=== PATIENT | female | born 1980 | race Caucasian/White ===

== ENCOUNTER → 2019-12-05 | Outpatient (CLI) | payer OTHER ==
--- NOTE | 2019-12-05 14:19 | Diagnostic Imaging Report ---
PROCEDURE: CT urinary tract, rule out kidney stone. TECHNIQUE: Multiple contiguous axial images were obtained through the abdomen and pelvis without the use of intravenous contrast. Auto Exposure Controls were utilized during the CT exam to meet ALARA standards for radiation dose reduction. INDICATION: Right flank pain. FINDINGS: Noncontrast images show no evidence of renal or ureteral calculi. There is no hydronephrosis. Renal outlines are smooth. The bladder is not distended. No bladder stones. Uterus and ovaries appear normal. Bowel gas pattern is normal. The appendix is visualized and normal. Small bowel shows no dilatation or wall thickening. Stomach is not distended. No free air or free fluid. No intra-abdominal adenopathy of pathologic size. Aorta appears normal. No blastic or lytic bony lesions. The lumbosacral spine shows good alignment. IMPRESSION: Negative CT abdomen and pelvis without contrast. Dictated by: Dictated on workstation # [id number]
== END ==
LOC: RAD 13:30
PROVIDERS: ATTEND Family Medicine
DX: R10.31 Right lower quadrant pain (principal)
CPT/HCPCS: 74176

== ENCOUNTER → 2021-04-05 | Outpatient (CLI) | payer BC ==
[~2021-04-05] VITALS: Ht 165 cm; Wt 100.0 kg
[~2021-04-05] MED LIST: ACETAMINOPHEN 500 MG TAB (TYLENOL) PO PRN; CASIRIVIMAB/IMDEVIMAB 1,200 MG in NS (IVPB) 250 ML IV ONE; EPINEPHrine INJECTION 1 MG/ML AMP IM PRN; ONDANSETRON 4 MG/2 ML (SDV) Z0FRAN IV PRN; diphenhydrAMINE 50 MG/ML INJ (BENADRYL) IV PRN
[2021-04-05 10:54] VITALS: BP 153/94
[2021-04-05 12:01] VITALS: BP 134/82
[2021-04-05 12:59] VITALS: BP 127/81
== END ==
LOC: INFUSION 10:45
PROVIDERS: ATTEND Nurse Practitioner Family
DX: U07.1 COVID-19 (principal)